=== PATIENT | male | born 1960 | race Caucasian/White ===

== ENCOUNTER 2016-05-06 09:58 | Inpatient (IN) | payer MEDICAID ==
[~2016-05-06] VITALS: Ht 182.9 cm; Wt 108.7 kg
[~2016-05-06 09:58] MED LIST: ALBU90AE INH; AMIT10TA PO; AMLO5TAB2 PO; ASPI-496 PO; ENAL20TA PO; HYDR-3307 PO; IBUP800T PO; METF500T4 PO; OMEP-110 PO; SIMV20TA3 PO; [UNRECOGNIZED DRUG - REMARK]
[2016-05-06] MEDS ORDERED: SODIUM CHLORIDE 0.9% 1,000 ML IV ONE (11:37)
[2016-05-06] MEDS ORDERED: MAALOX/HYOSCYAMINE/LIDOCAINE 45 ML BOTTLE ONE (11:56)
[2016-05-06] MEDS ORDERED: ONDANSETRON 2MG/ML, 2ML ONE (11:56)
[2016-05-06] MEDS ORDERED: MORPHINE SULFATE 4 MG/ML, 1ML ONE (11:56)
[2016-05-06] MEDS ORDERED: FAMOTIDINE 20 MG/2 ML ONE (11:56)
[2016-05-06] MEDS ORDERED: MORPHINE SULFATE 4 MG/ML, 1ML IVPush PRN ×2 (12:00→16:00)
[2016-05-06] MEDS ORDERED: FAMOTIDINE 20 MG/2 ML IVP ONE (12:00)
[2016-05-06] MEDS ORDERED: MAALOX/HYOSCYAMINE/LIDOCAINE 45 ML BOTTLE PO ONE (12:00)
[2016-05-06] MEDS ORDERED: ONDANSETRON 2MG/ML, 2ML IVPush ONE (12:00)
[2016-05-06 12:53] LABS: BLOOD UREA NITROGEN 11 mg/dL (7-18)
[2016-05-06 12:56] LABS: ASPARTATE AMINO TRANSFERASE 20 U/L (15-37)
[2016-05-06] MEDS ORDERED: KETOROLAC 30 MG/1 ML IVPush ONE (13:30)
[2016-05-06] MEDS ORDERED: KETOROLAC 30 MG/1 ML ONE (13:32)
[2016-05-06 13:38] LABS: ICTOTEST NEGATIVE
[2016-05-06] MEDS ORDERED: CITA10TA8 PO (14:45)
[2016-05-06] MEDS ORDERED: HYDR25TA11 PO (14:51)
[2016-05-06] MEDS ORDERED: ONDANSETRON 2MG/ML, 2ML IVP PRN (16:00)
[2016-05-06] MEDS: ENOXAPARIN 40 MG/0.4 ML SQ SCH (16:00)
[2016-05-06] MEDS ORDERED: BISACODYL 10 MG SUPP PR PRN (16:00)
[2016-05-06] MEDS ORDERED: LABETALOL 5MG/ML, 20ML IV PRN (16:00)
[2016-05-06] MEDS: INSULIN REGULAR 100 UNITS/ML, 3ML VIAL SQ-INSULIN SCH ×2 (17:00→22:38)
[2016-05-06] MEDS: LACTATED RINGERS 1,000 ML IV SCH ×2 (17:01→22:39)
[2016-05-06 17:17] VITALS: BP 123/80
[2016-05-06] MEDS: NICOTINE 21 MG/24 HR PATCH.TD24 TD SCH (18:45)
[2016-05-06 18:54] VITALS: BP 150/84
[2016-05-06] MEDS ORDERED: KETOROLAC 30 MG/1 ML IV ONE (23:00)
[2016-05-07 02:13] VITALS: BP 125/76
[2016-05-07] MEDS: INSULIN REGULAR 100 UNITS/ML, 3ML VIAL SQ-INSULIN SCH ×4 (04:52→21:00)
[2016-05-07 05:23] LABS: BLOOD UREA NITROGEN 14 mg/dL (7-18)
[2016-05-07 05:27] LABS: ASPARTATE AMINO TRANSFERASE 17 U/L (15-37)
[2016-05-07] MEDS ORDERED: KETOROLAC 30 MG/1 ML IM PRN (06:00)
[2016-05-07] MEDS: KETOROLAC 30 MG/1 ML IV PRN ×2 (06:01→16:23)
[2016-05-07] MEDS: LACTATED RINGERS 1,000 ML IV SCH ×3 (06:01→22:36)
[2016-05-07 07:18] VITALS: BP 137/79
[2016-05-07] MEDS: CITALOPRAM 20 MG TABLET PO SCH (09:20)
[2016-05-07] MEDS: AMLODIPINE 5 MG TABLET PO SCH (09:20)
[2016-05-07 13:48] VITALS: BP 126/86
[2016-05-07] MEDS: ENOXAPARIN 40 MG/0.4 ML SQ SCH (16:00)
[2016-05-07] MEDS: NICOTINE 21 MG/24 HR PATCH.TD24 TD SCH (16:33)
[2016-05-07 20:17] VITALS: BP 135/87
[2016-05-08 00:52] VITALS: BP 122/74
[2016-05-08] MEDS: KETOROLAC 30 MG/1 ML IV PRN (01:01)
[2016-05-08 05:17] LABS: ASPARTATE AMINO TRANSFERASE 17 U/L (15-37); BLOOD UREA NITROGEN 7 mg/dL (7-18)
[2016-05-08 06:51] VITALS: BP 139/89
[2016-05-08] MEDS: INSULIN REGULAR 100 UNITS/ML, 3ML VIAL SQ-INSULIN SCH (07:00)
[2016-05-08] MEDS: AMLODIPINE 5 MG TABLET PO SCH (08:10)
[2016-05-08] MEDS: CITALOPRAM 20 MG TABLET PO SCH (08:10)
== END 2016-05-08 11:14 | disposition left against medical advice (07) | DRG 439 ==
LOC: ED 12:45 → EDIP 15:30 → 3NE 17:50
PROC: 0T9B70Z Drainage of Bladder with Drainage Device, Via Natural or Artificial Opening (ICD-10-PCS; principal; 2016-05-06)
DX: K85.90 Acute pancreatitis without necrosis or infection, unspecified (principal); B18.1 Chronic viral hepatitis B without delta-agent; E78.5 Hyperlipidemia, unspecified; F17.210 Nicotine dependence, cigarettes, uncomplicated; F32.9 Major depressive disorder, single episode, unspecified; F41.9 Anxiety disorder, unspecified; E11.65 Type 2 diabetes mellitus with hyperglycemia; I11.9 Hypertensive heart disease without heart failure; Z87.442 Personal history of urinary calculi; Z90.49 Acquired absence of other specified parts of digestive tract; Z98.890 Other specified postprocedural states; Z79.84 Long term (current) use of oral hypoglycemic drugs; Z79.899 Other long term (current) drug therapy; Z72.89 Other problems related to lifestyle; Z79.82 Long term (current) use of aspirin
CPT/HCPCS: 36415; 74022; 76700; 80053; 80061; 81003; 82962; 83605; 83690; 85025; 85610; 86677; 93005; 96361; 96374; 96375; J1885; J2405; J7030; J7120; Q0177; S0028

== ENCOUNTER 2017-11-20 20:29 | Emergency (ER) | payer MEDICAID ==
[~2017-11-20] VITALS: Ht 182.9 cm; Wt 85.0 kg
[~2017-11-20 20:29] MED LIST changes: -AMLO5TAB2 PO; +AMLO5TAB7 PO; +CITA10TA8 PO; +HYDR25TA11 PO; +IBUP-1223 PO; -IBUP800T PO; +METF500T17 PO; -METF500T4 PO
[2017-11-20 20:38] VITALS: BP 165/93
== END 2017-11-20 22:01 | disposition home or self-care (01) ==
LOC: ED 21:07
DX: L03.90 Cellulitis, unspecified (principal); R21 Rash and other nonspecific skin eruption; E78.5 Hyperlipidemia, unspecified; G89.29 Other chronic pain; E11.65 Type 2 diabetes mellitus with hyperglycemia; J44.9 Chronic obstructive pulmonary disease, unspecified; I10 Essential (primary) hypertension
CPT/HCPCS: 82962; 99283

== ENCOUNTER 2017-12-06 04:00 | Emergency (ER) | payer MEDICAID ==
[~2017-12-06] VITALS: Ht 182.9 cm; Wt 100.3 kg
[2017-12-06 04:01] VITALS: BP 182/118
[2017-12-06] MEDS ORDERED: HYDROcodone/APAP 5/325 TABLET ONE (04:28)
[2017-12-06] MEDS: HYDROcodone/APAP 5/325 TABLET PO ONE ×2 (04:29→04:30)
== END 2017-12-06 04:41 | disposition home or self-care (01) ==
LOC: ED 04:40
DX: K08.89 Other specified disorders of teeth and supporting structures (principal); I10 Essential (primary) hypertension; E11.65 Type 2 diabetes mellitus with hyperglycemia; J44.9 Chronic obstructive pulmonary disease, unspecified; F17.200 Nicotine dependence, unspecified, uncomplicated
CPT/HCPCS: 99283

== ENCOUNTER 2019-06-01 17:14 | Emergency (ER) | payer MEDICAID ==
[~2019-06-01] VITALS: Ht 182.9 cm; Wt 92.0 kg
[~2019-06-01 17:14] MED LIST changes: +AMLO-150 PO; -AMLO5TAB7 PO; -HYDR-3307 PO; +HYDR-36 PO; +HYDR-826 PO; -HYDR25TA11 PO; +SIMV20TA19 PO; -SIMV20TA3 PO
[2019-06-01 17:18] VITALS: BP 131/87
[2019-06-01 17:50] LABS: BASOPHILS # (AUTO) 0.04 x10^3/uL (0-0.1); BASOPHILS % (AUTO) 1 % (0-1); EOSINOPHILS % (AUTO) 1 % (1-7); LYMPHOCYTES # (AUTO) 1.95 x10^3/uL (1-3.4); LYMPHOCYTES % (AUTO) 23 % (22-44); MD NO; MEAN CORPUSCULAR HEMOGLOBIN 29.7 pg (27.5-34.5); MEAN CORPUSCULAR HGB CONC 33.6 g/dL (33.2-36.2); MEAN CORPUSCULAR VOLUME 88.6 fL (81-97); MEAN PLATELET VOLUME 11.4 fL (7.4-10.4); MONOCYTES # (AUTO) 0.46 x10^3/uL (0.2-0.8); MONOCYTES % (AUTO) 6 % (2-9); NEUTROPHILS # (AUTO) 5.87 x10^3/uL (1.8-6.8); NEUTROPHILS % (AUTO) 70 % (42-75); PLATELET COUNT 190 x10^3/uL (130-400); RED BLOOD COUNT 5.79 x10^6/uL (4.38-5.82); RED CELL DISTRIBUTION WIDTH 13.8 % (9.4-14.8)
--- NOTE | 2019-06-01 17:52 | NUR ---
BIB EMS FOR HIGH BS. BS WAS [address]. PT STATES HE WAS FEELING WEAK. DENIES N/V/D. NO SOB OR CP. PT STATES HE DID NOT TAKE HIS METFORMIN TODAY. UA PROVIDED. LAW ENFORCEMENT AT BEDSIDE.
[2019-06-01 17:59] LABS: ANION GAP 9 mmol/L (5-15); CHLORIDE 105 mmol/L (98-107)
[2019-06-01] MEDS ORDERED: INSULIN SINGLE DOSE, ER ONE (18:09)
[2019-06-01] MEDS ORDERED: INSULIN REGULAR 100 UNITS/ML, 3ML VIAL SQ-INSULIN ONE (18:30)
--- NOTE | 2019-06-01 18:52 | NUR ---
Patient/Caregiver given discharge instructions and they have confirmed that they understand the instructions. Patient ambulatory with steady gait.
== END 2019-06-01 18:54 ==
LOC: ED 18:48
DX: E11.65 Type 2 diabetes mellitus with hyperglycemia (principal); R55 Syncope and collapse; I10 Essential (primary) hypertension; J44.9 Chronic obstructive pulmonary disease, unspecified
CPT/HCPCS: 36415; 80048; 80307; 85025; 99283; J1815